=== PATIENT | male | born 1980 | race African-American/Black ===

== ENCOUNTER 2022-11-22 13:43 | Inpatient (IN) | payer OTHER ==
[2022-11-22 14:11] VITALS: BMI 25.0
[2022-11-22] MEDS ORDERED: BENZONATATE 200 MG CAPSULE PO PRN (15:08)
[2022-11-22] MEDS ORDERED: ACETAMINOPHEN 325 MG TABLET (FP) PO PRN (15:08)
[2022-11-22] MEDS ORDERED: LOPERAMIDE HCL 2 MG CAPSULE PO PRN (15:08)
[2022-11-22] MEDS ORDERED: BENZOCAINE/MENTHOL (CHLORASEPTIC ) LOZENGE MM PRN (15:08)
[2022-11-22] MEDS ORDERED: POLYETHYLENE GLYCOL (HEALTHYLAX) 3350 17 GM PACKET PO PRN (15:08)
[2022-11-22] MEDS ORDERED: DICYCLOMINE HCL 10 MG CAPSULE PO PRN (15:08)
[2022-11-22] MEDS ORDERED: guaiFENesin 600 MG TABLET.ER (FP) PO PRN (15:08)
[2022-11-22] MEDS ORDERED: NALOXONE HCL 0.4 MG/ML VIAL IM PRN (15:08)
[2022-11-22] MEDS ORDERED: NALOXONE HCL (KLOXXADO) 8 MG SPRAY NS PRN (15:08)
[2022-11-22] MEDS ORDERED: BISMUTH SUBSALICYLATE 524 MG/30 ML PO PRN (15:08)
[2022-11-22] MEDS ORDERED: MAG HYDROX/AL HYDROX/SIMETH 30 ML UNIT-DOSE CUP PO PRN (15:08)
[2022-11-22] MEDS ORDERED: IBUPROFEN 400 MG TABLET (FP) PO PRN (15:08)
[2022-11-22] MEDS ORDERED: IBUPROFEN 600 MG TABLET (FP) PO PRN (15:08)
[2022-11-22] MEDS ORDERED: MAGNESIUM HYDROX 2400MG/30ML ORAL SUSPENSION 30 ML CUP PO PRN (15:08)
[2022-11-22] MEDS ORDERED: ONDANSETRON *ODT* 4 MG TABLET SL PRN (15:08)
[2022-11-22] MEDS ORDERED: hydrOXYzine PAMOATE 25 MG CAPSULE (FP) PO PRN (15:08)
[2022-11-22] MEDS ORDERED: chlordiazePOXIDE HCL 25 MG CAPSULE PO PRN (15:44)
[2022-11-22] MEDS ORDERED: chlordiazePOXIDE HCL 25 MG CAPSULE PO ONE (15:47)
[2022-11-22] MEDS ORDERED: INSULIN (NOVOLOG) ASPART 100 UNITS/ML 10ML VIAL ONE (16:34)
[2022-11-22] MEDS: INSULIN SLIDING SCALE (NOVOLOG) 1 VIAL SQ SCH ×2 (16:43→22:16)
[2022-11-22] MEDS ORDERED: chlordiazePOXIDE HCL 25 MG CAPSULE ONE (16:45)
[2022-11-22] MEDS: chlordiazePOXIDE HCL 25 MG CAPSULE PO SCH ×2 (17:46→22:09)
[2022-11-22] MEDS ORDERED: MELATONIN 5 MG TABLETS PO SCH (22:00)
[2022-11-22] MEDS: OLANZapine 10 MG TABLET PO SCH (22:09)
[2022-11-22] MEDS: cloNIDine HCL 0.1 MG TABLET PO PRN (22:09)
[2022-11-22] MEDS: GABAPENTIN 400 MG CAPSULE PO SCH (22:09)
[2022-11-22] MEDS: levETIRAcetam 500 MG TABLET (FP) PO SCH (22:09)
[2022-11-22] MEDS: THIAMINE HCL 100 MG TABLET (FP) PO SCH (22:09)
[2022-11-22] MEDS: busPIRone HCL 10 MG TABLET (FP) PO SCH (22:10)
[2022-11-22] MEDS: SUVOREXANT 10 MG TABLET PO PRN (22:13)
[2022-11-22] MEDS: INSULIN (LEVEMIR) 100 UNITS/ML UNITS SQ SCH (22:16)
[2022-11-23] MEDS: chlordiazePOXIDE HCL 25 MG CAPSULE PO SCH ×4 (05:24→22:08)
[2022-11-23] MEDS: GABAPENTIN 400 MG CAPSULE PO SCH ×3 (05:25→22:07)
[2022-11-23] MEDS: INSULIN SLIDING SCALE (NOVOLOG) 1 VIAL SQ SCH ×4 (06:46→22:11)
[2022-11-23] MEDS: PRENATAL VITAMINS W/ FOLIC ACID TABLET (FP) PO SCH (09:38)
[2022-11-23] MEDS: methaDONE HCL 40 MG DISPERSABLE TABLET PO SCH (09:43)
[2022-11-23] MEDS: busPIRone HCL 10 MG TABLET (FP) PO SCH ×2 (09:43→22:07)
[2022-11-23] MEDS: levETIRAcetam 500 MG TABLET (FP) PO SCH ×2 (09:43→22:07)
[2022-11-23] MEDS: METHOCARBAMOL 500 MG TABLET PO PRN (13:14)
[2022-11-23] MEDS: THIAMINE HCL 100 MG TABLET (FP) PO SCH (22:07)
[2022-11-23] MEDS: OLANZapine 10 MG TABLET PO SCH (22:08)
[2022-11-23] MEDS: INSULIN (LEVEMIR) 100 UNITS/ML UNITS SQ SCH (22:12)
[2022-11-24] MEDS ORDERED: INSULIN SLIDING SCALE (NOVOLOG) 1 VIAL SQ ONE (05:37)
[2022-11-24] MEDS: methaDONE HCL 40 MG DISPERSABLE TABLET PO SCH (05:38)
[2022-11-24] MEDS: GABAPENTIN 400 MG CAPSULE PO SCH ×3 (05:39→22:03)
[2022-11-24] MEDS: chlordiazePOXIDE HCL 25 MG CAPSULE PO SCH ×4 (05:50→22:03)
[2022-11-24] MEDS: INSULIN SLIDING SCALE (NOVOLOG) 1 VIAL SQ SCH ×4 (06:34→22:04)
[2022-11-24 10:07] LABS: HEMATOCRIT 35.5 % (35.4-49); HEMOGLOBIN 12.2 GM/dL (11.7-16.9); MCH 30.2 pg (25.7-33.7); MCHC 34.4 g/dl (32.0-35.9); MEAN CELL VOLUME 87.8 fl (80-96); MEAN PLT VOLUME 9.2 fl (7.5-11.1); PLATELET COUNT 292 10^3/uL (134-434); RBC 4.04 M/mm3 (4.00-5.60); RDW 12.9 % (11.9-15.9); WHITE BLOOD COUNT 11.8 K/mm3 (4.0-10.0)
[2022-11-24] MEDS: levETIRAcetam 500 MG TABLET (FP) PO SCH ×2 (10:09→22:03)
[2022-11-24] MEDS: PRENATAL VITAMINS W/ FOLIC ACID TABLET (FP) PO SCH (10:09)
[2022-11-24] MEDS: busPIRone HCL 10 MG TABLET (FP) PO SCH ×2 (10:10→22:03)
[2022-11-24] MEDS: METHOCARBAMOL 500 MG TABLET PO PRN (10:12)
[2022-11-24 10:18] LABS: ALBUMIN 3.3 g/dl (3.4-5.0); BLOOD UREA NITROGEN 26.3 mg/dL (7-18); CALCIUM 9.5 mg/dL (8.5-10.1)
[2022-11-24 10:19] LABS: CREATININE 1.3 mg/dL (0.55-1.3)
[2022-11-24 10:20] LABS: BILIRUBIN,TOTAL 0.4 mg/dL (0.2-1)
[2022-11-24 10:21] LABS: TOT PROT 8.6 g/dl (6.4-8.2)
[2022-11-24] MEDS: THIAMINE HCL 100 MG TABLET (FP) PO SCH (22:03)
[2022-11-24] MEDS: OLANZapine 10 MG TABLET PO SCH (22:03)
[2022-11-24] MEDS: SUVOREXANT 10 MG TABLET PO PRN (22:03)
[2022-11-24] MEDS: INSULIN (LEVEMIR) 100 UNITS/ML UNITS SQ SCH (22:04)
[2022-11-25] MEDS ORDERED: chlordiazePOXIDE HCL 10 MG CAPSULE PO PRN
[2022-11-25] MEDS: GABAPENTIN 400 MG CAPSULE PO SCH ×3 (05:14→21:51)
[2022-11-25] MEDS: chlordiazePOXIDE HCL 10 MG CAPSULE PO SCH ×4 (05:15→22:14)
[2022-11-25] MEDS: methaDONE HCL 40 MG DISPERSABLE TABLET PO SCH (05:15)
[2022-11-25] MEDS: INSULIN SLIDING SCALE (NOVOLOG) 1 VIAL SQ SCH ×4 (06:09→21:56)
[2022-11-25] MEDS: busPIRone HCL 10 MG TABLET (FP) PO SCH ×2 (10:24→21:51)
[2022-11-25] MEDS: levETIRAcetam 500 MG TABLET (FP) PO SCH ×2 (10:24→21:51)
[2022-11-25] MEDS: PRENATAL VITAMINS W/ FOLIC ACID TABLET (FP) PO SCH (10:24)
[2022-11-25] MEDS: OLANZapine 10 MG TABLET PO SCH (21:51)
[2022-11-25] MEDS: THIAMINE HCL 100 MG TABLET (FP) PO SCH (21:51)
[2022-11-25] MEDS: SUVOREXANT 10 MG TABLET PO PRN (21:52)
[2022-11-25] MEDS: INSULIN (LEVEMIR) 100 UNITS/ML UNITS SQ SCH (21:55)
[2022-11-26] MEDS: GABAPENTIN 400 MG CAPSULE PO SCH ×3 (05:10→21:28)
[2022-11-26] MEDS: chlordiazePOXIDE HCL 10 MG CAPSULE PO SCH ×2 (05:10→17:42)
[2022-11-26] MEDS: methaDONE HCL 40 MG DISPERSABLE TABLET PO SCH (05:10)
[2022-11-26] MEDS: METHOCARBAMOL 500 MG TABLET PO PRN (05:10)
[2022-11-26] MEDS: INSULIN SLIDING SCALE (NOVOLOG) 1 VIAL SQ SCH ×4 (06:14→23:27)
[2022-11-26] MEDS: PRENATAL VITAMINS W/ FOLIC ACID TABLET (FP) PO SCH (10:11)
[2022-11-26] MEDS: levETIRAcetam 500 MG TABLET (FP) PO SCH ×2 (10:11→21:27)
[2022-11-26] MEDS: busPIRone HCL 10 MG TABLET (FP) PO SCH ×2 (10:54→21:28)
[2022-11-26 12:50] LABS: HEMATOCRIT 36.1 % (35.4-49); HEMOGLOBIN 12.1 GM/dL (11.7-16.9); MCH 29.6 pg (25.7-33.7); MCHC 33.5 g/dl (32.0-35.9); MEAN CELL VOLUME 88.4 fl (80-96); MEAN PLT VOLUME 9.8 fl (7.5-11.1); PLATELET COUNT 278 10^3/uL (134-434); RBC 4.08 M/mm3 (4.00-5.60); RDW 12.7 % (11.9-15.9); WHITE BLOOD COUNT 8.2 K/mm3 (4.0-10.0)
[2022-11-26] MEDS: THIAMINE HCL 100 MG TABLET (FP) PO SCH (21:27)
[2022-11-26] MEDS: OLANZapine 10 MG TABLET PO SCH (21:28)
[2022-11-26] MEDS: INSULIN (LEVEMIR) 100 UNITS/ML UNITS SQ SCH (23:28)
[2022-11-27] MEDS ORDERED: chlordiazePOXIDE HCL 10 MG CAPSULE PO ONE (05:00)
[2022-11-27] MEDS: GABAPENTIN 400 MG CAPSULE PO SCH ×3 (05:08→21:11)
[2022-11-27] MEDS: methaDONE HCL 40 MG DISPERSABLE TABLET PO SCH (05:08)
[2022-11-27] MEDS: INSULIN SLIDING SCALE (NOVOLOG) 1 VIAL SQ SCH ×4 (06:19→21:17)
[2022-11-27] MEDS: PRENATAL VITAMINS W/ FOLIC ACID TABLET (FP) PO SCH (10:02)
[2022-11-27] MEDS: levETIRAcetam 500 MG TABLET (FP) PO SCH ×2 (10:02→21:12)
[2022-11-27] MEDS: busPIRone HCL 10 MG TABLET (FP) PO SCH ×2 (10:02→21:11)
[2022-11-27] MEDS ORDERED: cloNIDine HCL 0.1 MG TABLET PO ONE (13:53)
[2022-11-27 15:51] VITALS: RESP 18
[2022-11-27] MEDS: NICOTINE 10 MG CARTRIDGE (INHALER) IH PRN (17:09)
[2022-11-27] MEDS: THIAMINE HCL 100 MG TABLET (FP) PO SCH (21:10)
[2022-11-27] MEDS: OLANZapine 10 MG TABLET PO SCH (21:11)
[2022-11-27] MEDS: INSULIN (LEVEMIR) 100 UNITS/ML UNITS SQ SCH (21:17)
[2022-11-28] MEDS: methaDONE HCL 40 MG DISPERSABLE TABLET PO SCH (05:52)
[2022-11-28] MEDS: GABAPENTIN 400 MG CAPSULE PO SCH ×3 (05:52→21:04)
[2022-11-28] MEDS: INSULIN SLIDING SCALE (NOVOLOG) 1 VIAL SQ SCH ×4 (07:05→21:05)
[2022-11-28] MEDS: NICOTINE 10 MG CARTRIDGE (INHALER) IH PRN ×3 (07:05→23:03)
[2022-11-28] MEDS: busPIRone HCL 10 MG TABLET (FP) PO SCH ×2 (09:49→21:04)
[2022-11-28] MEDS: levETIRAcetam 500 MG TABLET (FP) PO SCH ×2 (09:49→21:04)
[2022-11-28] MEDS: PRENATAL VITAMINS W/ FOLIC ACID TABLET (FP) PO SCH (09:49)
[2022-11-28] MEDS: clonazePAM 0.5 MG ODT TABLETS SL SCH ×2 (17:04→21:05)
[2022-11-28] MEDS: OLANZapine 10 MG TABLET PO SCH (21:04)
[2022-11-28] MEDS: THIAMINE HCL 100 MG TABLET (FP) PO SCH (21:04)
[2022-11-28] MEDS: INSULIN (LEVEMIR) 100 UNITS/ML UNITS SQ SCH (21:05)
[2022-11-29] MEDS: methaDONE HCL 40 MG DISPERSABLE TABLET PO SCH (05:47)
[2022-11-29] MEDS: clonazePAM 0.5 MG ODT TABLETS SL SCH ×3 (05:47→21:29)
[2022-11-29] MEDS: GABAPENTIN 400 MG CAPSULE PO SCH ×3 (05:47→21:27)
[2022-11-29] MEDS: cloNIDine HCL 0.1 MG TABLET PO PRN (06:12)
[2022-11-29] MEDS: INSULIN SLIDING SCALE (NOVOLOG) 1 VIAL SQ SCH ×4 (07:08→21:34)
[2022-11-29] MEDS ORDERED: cloNIDine HCL 0.1 MG TABLET PO PRN (09:10)
[2022-11-29] MEDS: busPIRone HCL 10 MG TABLET (FP) PO SCH ×2 (09:33→21:27)
[2022-11-29] MEDS: PRENATAL VITAMINS W/ FOLIC ACID TABLET (FP) PO SCH (09:33)
[2022-11-29] MEDS: levETIRAcetam 500 MG TABLET (FP) PO SCH ×2 (09:33→21:28)
[2022-11-29] MEDS ORDERED: INSULIN SLIDING SCALE (NOVOLOG) 1 VIAL SQ ONE (11:41)
[2022-11-29] MEDS: THIAMINE HCL 100 MG TABLET (FP) PO SCH (21:27)
[2022-11-29] MEDS: OLANZapine 10 MG TABLET PO SCH (21:28)
[2022-11-29] MEDS: INSULIN (LEVEMIR) 100 UNITS/ML UNITS SQ SCH (21:34)
[2022-11-30] MEDS: clonazePAM 0.5 MG ODT TABLETS SL SCH (05:49)
[2022-11-30] MEDS: GABAPENTIN 400 MG CAPSULE PO SCH (05:49)
[2022-11-30] MEDS ORDERED: methaDONE HCL 40 MG DISPERSABLE TABLET PO SCH (06:00)
[2022-11-30] MEDS: NICOTINE 10 MG CARTRIDGE (INHALER) IH PRN (06:58)
[2022-11-30] MEDS: INSULIN SLIDING SCALE (NOVOLOG) 1 VIAL SQ SCH (06:59)
[2022-11-30 07:15] VITALS: BP 151/82; PULSE 99; TEMP 98.2
[2022-11-30] MEDS: busPIRone HCL 10 MG TABLET (FP) PO SCH (09:38)
[2022-11-30] MEDS: PRENATAL VITAMINS W/ FOLIC ACID TABLET (FP) PO SCH (09:38)
[2022-11-30] MEDS: levETIRAcetam 500 MG TABLET (FP) PO SCH (09:38)
[2022-11-30] MEDS ORDERED: INSULIN (LEVEMIR) 100 UNITS/ML UNITS SQ SCH (22:00)
[2022-12-01] MEDS ORDERED: clonazePAM 0.5 MG ODT TABLETS SL SCH (10:00)
== END 2022-11-30 10:22 | disposition left against medical advice (07) | DRG 894 ==
LOC: YASAS 13:43 → Y3N 16:49 → Y3W 11-27 15:23
PROVIDERS: ADMIT Allergy & Immunology; ATTEND Surgery
PROC: HZ2ZZZZ Detoxification Services for Substance Abuse Treatment (ICD-10-PCS; 2022-11-22)
PROC: HZ42ZZZ Group Counseling for Substance Abuse Treatment, Cognitive-Behavioral (ICD-10-PCS; principal; 2022-11-27)
DX: F11.20 Opioid dependence, uncomplicated (principal); F14.20 Cocaine dependence, uncomplicated; F13.20 Sedative, hypnotic or anxiolytic dependence, uncomplicated; F10.20 Alcohol dependence, uncomplicated; F17.210 Nicotine dependence, cigarettes, uncomplicated; F20.9 Schizophrenia, unspecified; F32.A Depression, unspecified; F41.9 Anxiety disorder, unspecified; G40.909 Epilepsy, unspecified, not intractable, without status epilepticus; I10 Essential (primary) hypertension; G62.9 Polyneuropathy, unspecified; E11.9 Type 2 diabetes mellitus without complications; M54.50 Low back pain, unspecified; G89.29 Other chronic pain; Z99.89 Dependence on other enabling machines and devices; Z88.0 Allergy status to penicillin; F91.8 Other conduct disorders; Z91.199 Patient's noncompliance with other medical treatment and regimen due to unspecified reason
CPT/HCPCS: 36415; 80053; 82962; 84520; 85027; 86780; 87811; C9803-CS; U0003; U0005